=== PATIENT | male | born 1985 | race African-American/Black ===

== ENCOUNTER 2019-06-03 18:56 | Inpatient (IN) | payer OTHER, MEDICAID ==
[~2019-06-03] VITALS: Ht 172.7 cm; Wt 125.2 kg
[2019-06-04] MEDS ORDERED: HALOPERIDOL 5 MG TABLET PO PRN (01:30)
[2019-06-04] MEDS ORDERED: LORazepam 1 MG TABLET PO PRN (01:30)
[2019-06-04] MEDS ORDERED: ZOLPIDEM TARTRATE 10 MG TABLET PO PRN (01:30)
[2019-06-04] MEDS ORDERED: QUEtiapine FUMARATE 100 MG TABLET PO PRN (01:30)
[2019-06-04 02:03] VITALS: BP 115/64
[2019-06-04 08:08] VITALS: BP 119/65
[2019-06-04 16:10] VITALS: BP_SYST 108; BP_SYST 111; BP_DIAS 68
[2019-06-04] MEDS: OLANZapine 10 MG TABLET PO SCH (16:41)
[2019-06-05 00:35] VITALS: BP 118/70
[2019-06-05 07:56] LABS: BASOPHILS % (AUTO) 1.1 % (0.0-2.0); EOSINOPHILS % (AUTO) 2.7 % (1.0-6.0); HEMATOCRIT 43.4 % (41-53); HEMOGLOBIN 14.3 g/dL (13.5-17.5); LYMPHOCYTES # (AUTO) 1.8 K/uL (1.0-4.8); LYMPHOCYTES % (AUTO) 37.4 % (22.0-44.0); MEAN CORPUSCULAR HEMOGLOBIN 30.9 pg (26.0-34.0); MEAN CORPUSCULAR VOLUME 93 fL (80-100); MONOCYTES # (AUTO) 0.5 K/uL (0.1-1.0); MONOCYTES % (AUTO) 9.4 % (2.0-9.0); NEUTROPHILS # (AUTO) 2.4 K/uL (1.8-7.7); NEUTROPHILS % (AUTO) 49.4 % (40.0-70.0); PLATELET COUNT (AUTO) 278 K/uL (150-450); RED BLOOD CELL COUNT(AUTO) 4.64 MIL/uL (4.50-5.90); RED CELL DISTRIBUTION WIDTH 14.9 % (11.5-14.5)
[2019-06-05 08:25] LABS: ALANINE AMINOTRANSFERASE 228 U/L (12-78); ALBUMIN 3.3 g/dL (3.4-5.0); ALKALINE PHOSPHATASE 102 U/L (46-116); ANION GAP 10 mmol/L (8-16); ASPARTATE AMINOTRANSFERASE 167 U/L (15-37); BILIRUBIN,TOTAL 0.5 mg/dL (0.1-1.0); CALCIUM, TOTAL 9.2 mg/dL (8.8-10.5); CARBON DIOXIDE 24 mmol/L (22-29); CHLORIDE 106 mmol/L (98-107); CHOL/HDL RATIO 3.7 (4.2-7.3); CHOLESTEROL 189 mg/dL (131-200); CREATININE 0.79 mg/dL (0.60-1.30); FREE T4 (FREE THYROXINE) 0.84 ng/dL (0.76-1.46); GLOMERULAR FILTR. RATE CALC > 60 mL/min (>60); GLUCOSE,RANDOM 93 mg/dL (70-110); HDL CHOLESTEROL 51 mg/dL (40-60); LDL CHOL (CALC.) 125 mg/dL (0-130); POTASSIUM 4.1 mmol/L (3.5-5.1); SODIUM SERUM 140 mmol/L (136-145); THYROID STIMULATING HORMONE 0.18 uIU/mL (0.36-3.74); TOTAL PROTEIN, SERUM 7.2 g/dL (6.4-8.2); TRIGLYCERIDES 63 mg/dL (15-150); UREA NITROGEN, BLOOD 9 mg/dL (7-18)
[2019-06-05 08:27] VITALS: BP 121/62
[2019-06-05 08:27] LABS: AMPHET/METH SCREEN,URINE NEGATIVE (NEGATIVE); BARBITURATE SCREEN, URINE NEGATIVE (NEGATIVE); BENZODIAZEPINES SCREEN,URINE NEGATIVE (NEGATIVE); CANNABINOID SCREEN,URINE POSITIVE (NEGATIVE); COCAINE SCREEN,URINE NEGATIVE (NEGATIVE); METHADONE SCREEN, URINE NEGATIVE (NEGATIVE); OPIATE SCREEN,URINE NEGATIVE (NEGATIVE)
[2019-06-05 08:31] LABS: APPEARANCE,URINE CLEAR (CLEAR); BILIRUBIN,URINE NEGATIVE (NEGATIVE); GLUCOSE, URINE (UA) NEGATIVE (NEGATIVE); KETONES,URINE NEGATIVE (NEGATIVE); LEUKOCYTE ESTERASE ,URINE NEGATIVE (NEGATIVE); NITRATE,URINE NEGATIVE (NEGATIVE); OCCULT BLOOD,URINE NEGATIVE (NEGATIVE); PH,URINE 7.5 (5.0-8.0); PROTEIN,URINE NEGATIVE (NEGATIVE)
[2019-06-05 08:39] LABS: PHENCYCLIDINE SCREEN,URINE NEGATIVE (NEGATIVE)
[2019-06-05] MEDS: OLANZapine 10 MG TABLET PO SCH ×2 (08:51→16:30)
[2019-06-05] MEDS ORDERED: ESCITALOPRAM OXALATE 10 MG TABLET PO SCH (11:15)
[2019-06-05] MEDS ORDERED: ACETAMINOPHEN 325 MG TABLET PO PRN (15:00)
[2019-06-05] MEDS ORDERED: GuaiFENesin/D-METHORPHAN [SUGAR-FREE] 200-20MG/10 ML SYRUP UDCUP PO PRN (15:00)
[2019-06-05] MEDS ORDERED: NICOTINE 14 MG/24 HOUR PATCH TD PRN (15:00)
[2019-06-05] MEDS ORDERED: DOCUSATE SODIUM 100 MG CAPSULE PO PRN (15:00)
[2019-06-05] MEDS ORDERED: CloNIDine HCL 0.1 MG TABLET PO PRN (15:00)
[2019-06-05] MEDS ORDERED: LOPERAMIDE HCL 2 MG CAPSULE PO PRN (15:00)
[2019-06-05] MEDS ORDERED: MAG HYDROX/AL HYDROX/SIMETH ES 30 ML SUSPENSION UDCUP PO PRN (15:00)
[2019-06-05] MEDS ORDERED: ONDANSETRON HCL 4 MG TABLET PO PRN (15:00)
[2019-06-05] MEDS ORDERED: IBUPROFEN 400 MG TABLET PO PRN (15:00)
[2019-06-05] MEDS ORDERED: PETROLATUM,WHITE 28 GM JELLY TP PRN (15:00)
[2019-06-05] MEDS ORDERED: ALBUTEROL SULFATE HFA 90 MCG/PUFF 8 GM INHALER IH PRN (15:00)
[2019-06-05] MEDS ORDERED: MAGNESIUM HYDROXIDE SUSPENSION 30 ML UDCUP PO PRN (15:00)
[2019-06-05 17:53] VITALS: BP 112/63
[2019-06-06 06:29] VITALS: BP 110/68
[2019-06-06 08:26] VITALS: BP 127/73
[2019-06-06] MEDS: OLANZapine 10 MG TABLET PO SCH ×2 (09:10→16:34)
[2019-06-06 16:00] VITALS: BP 120/77
[2019-06-07 05:10] VITALS: BP 140/72
[2019-06-07] MEDS: OLANZapine 10 MG TABLET PO SCH ×2 (08:05→16:37)
[2019-06-07 08:08] VITALS: BP 132/80
[2019-06-07 16:07] VITALS: BP 121/68
[2019-06-08 04:50] VITALS: BP 110/67
[2019-06-08 08:21] VITALS: BP 113/72
[2019-06-08 16:21] VITALS: BP 139/73
[2019-06-08] MEDS: OLANZapine 7.5 MG TABLET PO SCH (16:30)
[2019-06-09 05:31] VITALS: BP 131/78
[2019-06-09 08:50] VITALS: BP 104/57
[2019-06-09] MEDS: OLANZapine 7.5 MG TABLET PO SCH (08:59)
[2019-06-09] MEDS ORDERED: OLAN7.5T2 PO (09:03)
== END 2019-06-09 12:00 | disposition home or self-care (01) | DRG 885 ==
LOC: B2X 06-04 02:25
PROVIDERS: ADMIT Psychiatry & Neurology Child & Adolescent Psychiatry; ATTEND Psychiatry & Neurology Child & Adolescent Psychiatry
DX: F20.0 Paranoid schizophrenia (principal); G44.209 Tension-type headache, unspecified, not intractable; F15.10 Other stimulant abuse, uncomplicated; K21.9 Gastro-esophageal reflux disease without esophagitis; Z59.0 Homelessness; Z81.8 Family history of other mental and behavioral disorders; Z91.19 Patient's noncompliance with other medical treatment and regimen; Z88.8 Allergy status to other drugs, medicaments and biological substances
CPT/HCPCS: 80307; 84436; 84439; 84443; 86592